=== PATIENT | female | born 1965 ===

== ENCOUNTER 2018-02-09 10:14 | Outpatient (CLI) | payer OTHER | END 2018-02-09 10:15 | disposition home or self-care (01) | LOC: C.LAB 10:14 | DX: R10.9 Unspecified abdominal pain (principal) ==

== ENCOUNTER 2018-02-10 11:11 | Outpatient (CLI) | payer SELFPAY | END 2018-02-10 11:12 | disposition home or self-care (01) | LOC: C.CTH 11:11 ==